=== PATIENT | male | born 1985 | race Caucasian/White ===

== ENCOUNTER → 2016-06-27 | Outpatient (CLI) | payer BC | LOC: M OUTALCOH 16:00 | PROVIDERS: ATTEND Psychiatry & Neurology Psychiatry | DX: Z03.89 Encounter for observation for other suspected diseases and conditions ruled out (principal) ==

== ENCOUNTER → 2016-07-17 | Outpatient (RCR) | payer BC | LOC: M OUTALCOH 07-04 16:00 | PROVIDERS: ATTEND Psychiatry & Neurology Psychiatry | DX: F11.20 Opioid dependence, uncomplicated (principal) ==

== ENCOUNTER → 2016-07-23 | Outpatient (REF) | payer BC | LOC: M LAB REF 16:35 | PROVIDERS: ATTEND Physician Assistant | DX: J11.1 Influenza due to unidentified influenza virus with other respiratory manifestations (principal) ==

== ENCOUNTER 2016-08-14 16:00 | Outpatient (RCR) | payer BC | END 2016-08-17 | LOC: M OUTALCOH 16:00 | PROVIDERS: ATTEND Psychiatry & Neurology Psychiatry | DX: F11.20 Opioid dependence, uncomplicated (principal) ==

== ENCOUNTER 2016-08-21 10:23 | Outpatient (RCR) | payer BC | END 2016-09-16 | LOC: M OUTALCOH 10:23 | PROVIDERS: ATTEND Psychiatry & Neurology Psychiatry | DX: F11.20 Opioid dependence, uncomplicated (principal) ==

== ENCOUNTER → 2024-01-09 | Outpatient (CLI) | payer SELFPAY | LOC: M SOG 07:59 | PROVIDERS: ATTEND Physician Assistant | DX: M79.644 Pain in right finger(s) (principal) ==

== ENCOUNTER → 2024-04-21 | Outpatient (CLI) | payer OTHER ==
[~2024-04-21] MED LIST: BUPR1FIL SL; CLON-412 PO; HYDR50TA70 PO; IBUP80TA PO; TRAZ-257 PO
== END ==
LOC: M SOG 10:34
PROVIDERS: ATTEND Orthopaedic Surgery Hand Surgery
DX: G56.21 Lesion of ulnar nerve, right upper limb (principal); M25.821 Other specified joint disorders, right elbow

== ENCOUNTER 2024-04-27 08:55 | Day surgery (SDC) | payer OTHER ==
[~2024-04-27] VITALS: Ht 188 cm; Wt 102.9 kg
[2024-04-27] MEDS: NS 1,000 ML IV SCH (10:43)
[2024-04-27] MEDS ORDERED: GLYCOPYRROLATE INJ 0.2 MG/ML 2 ML VIAL As Ordered ONE (10:59)
[2024-04-27] MEDS ORDERED: ONDANSETRON 4MG 2ML VIAL As Ordered ONE (10:59)
[2024-04-27] MEDS ORDERED: propofoL 200 MG/20 ML VIAL As Ordered ONE (10:59)
[2024-04-27] MEDS ORDERED: KETOROLAC 60MG 2ML VIAL As Ordered ONE (10:59)
[2024-04-27] MEDS ORDERED: LIDOCAINE 2% 100MG/5ML SDV (FOR ANES.) As Ordered ONE (10:59)
[2024-04-27] MEDS ORDERED: MIDAZOLAM INJ 2MG/2ML VIAL As Ordered ONE (11:01)
[2024-04-27] MEDS ORDERED: fentaNYL 100 MCG/2 ML INJECTION As Ordered ONE (11:02)
[2024-04-27] MEDS: ceFAZolin 2 GM/D5W 50 ML IV BAG As Ordered ONE (12:25)
[2024-04-27] MEDS ORDERED: ACETAMINOPHEN 1000MG/100ML IV BAG As Ordered ONE (12:34)
[2024-04-27] MEDS: LIDOCAINE W/EPINEPHRINE 1% 20ML VIAL As Ordered ONE (12:50)
[2024-04-27] MEDS: BACITRACIN OINTMENT 30GM TUBE As Ordered ONE (13:20)
[2024-04-27] MEDS ORDERED: NS 1,000 ML IV SCH (13:30)
[2024-04-27] MEDS ORDERED: fentaNYL 100 MCG/2 ML INJECTION IV PRN (13:30)
[2024-04-27] MEDS: oxyCODONE 5MG TAB PO PRN (14:04)
[2024-04-27] MEDS: HYDROMORPHONE HCL 0.5 MG/ 0.5 ML SYRINGE IV PRN (14:25)
[2024-04-27] MEDS: ONDANSETRON 4MG 2ML VIAL IV PRN (14:26)
[2024-04-27 15:30] VITALS: BP 130/78; TEMP 98.1; O2SAT 98
== END 2024-04-27 15:50 | disposition home or self-care (01) ==
LOC: M SDC 08:55
PROVIDERS: ATTEND Orthopaedic Surgery Hand Surgery
DX: G56.01 Carpal tunnel syndrome, right upper limb (principal); G56.21 Lesion of ulnar nerve, right upper limb
CPT/HCPCS: 29848; 29999; J0131; J0665; J0690; J1100; J1171; J1596; J1885; J2250; J2405; J3010